=== PATIENT | female | born 1965 | race Caucasian/White ===

== ENCOUNTER 2019-05-28 06:46 | Emergency (ER) | payer OTHER ==
[~2019-05-28] VITALS: Ht 162.6 cm; Wt 99.8 kg
[~2019-05-28 06:46] MED LIST: LEVAQUIN750 MG PO; MUCINEX; TESSALON; TUSSIONEX PENNKI5 ML
== END 2019-05-28 08:52 | disposition home or self-care (01) ==
LOC: ER 06:46
DX: S50.871A Other superficial bite of right forearm, initial encounter (principal); R60.0 Localized edema; W57.XXXA Bitten or stung by nonvenomous insect and other nonvenomous arthropods, initial encounter; Y93.89 Activity, other specified; Y92.89 Other specified places as the place of occurrence of the external cause; Y99.8 Other external cause status